=== PATIENT | male | born 1960 | race Caucasian/White ===

== ENCOUNTER 2022-03-14 07:59 | Outpatient (CLI) | payer BC, SELFPAY ==
--- NOTE | 2022-03-14 08:15 | CRLHL7_ITS ---
For Patients: As a result of the Century Cures Act, medical imaging exams and procedure reports are released immediately into your electronic medical record. You may view this report before your referring provider. If you have questions, please contact your health care provider. Technique: Double contrast barium enema. Fluoroscopy time 1 minutes 48 seconds. Indication: INCOMPLETE COLONOSCOPY Comparison: 02/06/2017 Findings: Mild colonic diverticulosis again noted. No stricture or suspicious mass. No mucosal abnormality. No obstruction to the flow of barium. Mild tortuosity noted. Similar appearance of the splenic flexure. Impression: Mild colonic diverticulosis. Remainder unremarkable and unchanged. Dictated by Wander Reyna MD @ 03/14/2022 10:25:31 AM (Electronically Signed)
== END 2022-03-14 08:00 | disposition home or self-care (01) ==
PROVIDERS: PCP Family Medicine; Visit Provider Family Medicine
DX: Z12.11 Encounter for screening for malignant neoplasm of colon (principal); K57.30 Diverticulosis of large intestine without perforation or abscess without bleeding
CPT/HCPCS: 74280